=== PATIENT | female | born 1950 | race Caucasian/White ===

== ENCOUNTER 2016-07-02 15:30 | Emergency (ER) | payer MEDICARE, BC ==
[2016-07-02 15:43] VITALS: BP 160/68
[2016-07-02] MEDS ORDERED: TETRACAINE HCL 150 DROP BTL ONE (15:48)
--- NOTE | 2016-07-02 15:49 | ERNOTE ---
ENT HPI Date of Service: 07/02/16 Presenting Symptoms: eye pain Time Seen by Provider: 07/02/16 15:48 Source: patient, RN notes reviewed Exam Limitations: no limitations - Immun/Allergies/Home Medications Immunizations: IMMUNIZATION HX Immunizations Up to Date Yes Allergies/Adverse Reactions: Allergies Allergy/AdvReac Type Severity Reaction Status Date / Time Penicillins Allergy Verified 07/02/16 15:43 Home Medications: HOME MEDICATIONS Lisinopril [Zestril] 10 mg PO DAILY 07/02/16 [Last Taken Unknown] busPIRone HCL [Buspar] 5 mg PO DAILY 07/02/16 [Last Taken Unknown] - History of Present Illness Narrative: 66 y/o female ambulatory to ED with right eye pain, watering, and light sensitivity that began 2 nights ago. Her eye began burning when she was doing laundry. She thought that she may have gotten detergent in her eye. The symptoms were better this morning, but she started having more irritation this afternoon so she removed her contact. The burning and tearing continued to worsen. Date (Duration): 06/30/16 ENT Location: Present: eye (R) Prearrival Treatment: Present: flushing eys Associated Symptoms - ENT: Reports: headache. Denies: fever, malaise, cough, sore throat, nasal congestion/drainage, facial pain/swelling Prior Treament: Denies: similar symptoms before Review of Systems - Review of Systems Constitutional: Present: See HPI EYE: Present: eye pain, tearing, other - photophobia. Absent: eye discharge, vision changes ENT: Present: See HPI Respiratory: Present: See HPI Cardiology: Present: no symptoms reported Gastrointestinal/Abdominal: Present: no symptoms reported Genitourinary: Present: no symptoms reported Musculoskeletal: Present: no symptoms reported Skin: Absent: rash, lesions Neurological: Present: headache. Absent: dizziness/light-headedness Endocrine: Present: no symptoms reported Hematologic/Lymphatic: Present: no symptoms reported Psych: Present: no symptoms reported - Patient's Past Medical History Patient History - Medical: Arthritis Patient History - Cardiac/Respiratory: CVA/Stroke, Hypertension Patient History - Cancer: No Hx of Cancer Patient History - Surgical Procedures: Cholecystectomy, Hysterectomy, Other - Social History Living Situations: home Smoking Status: Current every day smoker Have you smoked in the past 12 months: Yes - Immunizations Immunizations Up to Date: Yes - Reports tetanus vaccine within 10 yrs Physical Exam - Physical Exam General Appearance: Present: wd/wn, alert, mild distress Eye Exam: Normal inspection: left, PERRL: bilateral, EOMI: bilateral, Eyelid inflammation: right, Photophobia: right, Other: right - severe conjunctival injection Respiratory: Present: no respiratory distress, no accessory muscle use Neurological Exam: Present: alert, oriented, normal mood/affect Skin Exam: Present: normal color, warm/dry ED Progress - Vital Signs Patient's Vital Signs:: I have reviewed the patient's vital signs. Vital Signs: Vital Signs 07/02/16 15:40 Temperature 36.6 C Pulse Rate 71 Respiratory 14 Rate Blood Pressure 160/68 O2 Sat by Pulse 96 Oximetry - Progress/Reassessment Chief Complaint: Eye Injury/Trauma Progress:: Improved Procedures Eye Location: right eye Tetracaine Drops Administered: Yes Eye - Cornea: Right: examined w/fluorescein, fluorescein dye uptake - 3 areas, abrasion Antibiotic Ointment/Drps Admin: right eye Complications: Pt michelet procedure well Departure Clinical Impression: Corneal abrasion, right Qualifiers: Encounter type: initial encounter Qualified Code(s): S05.01XA - Injury of conjunctiva and corneal abrasion without foreign body, right eye, initial encounter - Departure Disposition: Home Follow Up Needed Condition: Good Instructions: Corneal Abrasion, [id number] Additional Instructions: Use antibiotic ointment 3 times a day for 5 days Ibuprofen for pain/inflammation - 600 mg (3 tablets) every 6 hours with food Contact your eye doctor for recheck tomorrow Do not wear your contact until the eye doctor tells you to
[2016-07-02] MEDS ORDERED: IBUPROFEN 600 MG TABLET PO ONE (16:01)
[2016-07-02] MEDS ORDERED: GENTAMICIN SULFATE 3.5 APPL TUBE RIGHTEYE ONE (16:01)
[2016-07-02] MEDS ORDERED: GENTAMICIN SULFATE 3.5 APPL TUBE ONE (16:05)
[2016-07-02] MEDS ORDERED: IBUPROFEN 600 MG TABLET ONE (16:05)
== END 2016-07-02 16:17 | disposition home or self-care (01) ==
LOC: ER 15:30
DX: S05.01XA Injury of conjunctiva and corneal abrasion without foreign body, right eye, initial encounter (principal); F17.210 Nicotine dependence, cigarettes, uncomplicated; I10 Essential (primary) hypertension; Y93.E2 Activity, laundry